=== PATIENT | male | born 1965 | race Caucasian/White ===

== ENCOUNTER 2017-05-28 12:17 | Outpatient (CLI) | payer OTHER ==
--- NOTE | 2017-05-28 18:20 | DIAGNOSTIC IMAGING REPORT ---
PROCEDURE: MR LOW EXT NONJOINT WO CON-RT INDICATION: RIGHT MIDFOOT PAIN, NEGATIVE XRAYS TECHNIQUE: T1 and STIR sagittal, axial, coronal and coronal-oblique images. COMPARISON: None. FINDINGS: Moderate talonavicular osteoarthritic changes with spur formation. There is extensive navicular bone marrow edema, reactive edema versus occult fracture. No evidence of tarsal coalition. Normal tibiotalar joint. Normal sinus tarsi. Normal Achilles tendon and plantar fascia. Tibiofibular, anterior and posterior talofibular, calcaneofibular and deltoid ligaments are intact. Extensor, peroneus brevis, peroneus longus and flexor hallucis longus tendons are intact. Posterior tibialis and flexor digitorum longus tendons are intact with a small amount of surrounding fluid suggestive of tenosynovitis. IMPRESSION: 1. Moderate talonavicular osteoarthritic changes with extensive navicular bone marrow edema, reactive edema versus occult fracture.
== END 2017-05-28 23:00 | disposition home or self-care (01) ==
LOC: MRI SRH 12:17
DX: M19.071 Primary osteoarthritis, right ankle and foot (principal); R60.9 Edema, unspecified